=== PATIENT | male | born 1950 | race Caucasian/White ===

== ENCOUNTER → 2016-08-22 | Outpatient (CLI) | payer BC ==
[~2016-08-22] MED LIST: NRV5 PO; VLT500 PO
[2016-08-22 12:26] LABS: BLOOD UREA NITROGEN 7 mg/dl (7-18); BUN/CREATININE RATIO 8.5 (10-20); CALCIUM 9.2 mg/dl (8.5-10.1); CARBON DIOXIDE 29 mmol/L (21-32); CHLORIDE 102 mmol/L (98-107); CREATININE 0.79 mg/dl (0.60-1.40); GLUCOSE 101 mg/dl (70-99); POTASSIUM 4.3 mmol/L (3.5-5.1); SODIUM 136 mmol/L (136-145)
[2016-08-22 12:30] LABS: CHOLESTEROL 262 mg/dl (0-200); CHOLESTEROL/HDL RATIO 3.4; HDL CHOLESTEROL 77 mg/dl; LDL CHOLESTEROL CALCULATED 171 mg/dl; TRIGLYCERIDES 72 mg/dl (0-150); VERY LOW DENSITY LIPOPROT CALC 14 mg/dl
== END | disposition home or self-care (01) ==
LOC: C.LABPVFM 07:31
PROVIDERS: ATTEND Family Medicine
DX: I10 Essential (primary) hypertension (principal); E78.5 Hyperlipidemia, unspecified

== ENCOUNTER → 2017-02-06 | Outpatient (CLI) | payer BC | END | disposition home or self-care (01) | LOC: C.LABPVFM 07:44 | PROVIDERS: ATTEND Family Medicine | DX: E78.5 Hyperlipidemia, unspecified (principal) ==

== ENCOUNTER → 2017-02-07 | Outpatient (CLI) | payer BC ==
[2017-02-07 13:32] LABS: ALT/SGPT 39 U/L (12-78); AST/SGOT 28 U/L (15-37); BLOOD UREA NITROGEN 10 mg/dl (7-18); BUN/CREATININE RATIO 13.5 (10-20); CALCIUM 8.9 mg/dl (8.5-10.1); CARBON DIOXIDE 24 mmol/L (21-32); CHLORIDE 104 mmol/L (98-107); CREATININE 0.74 mg/dl (0.60-1.40); GLUCOSE 94 mg/dl (70-99); POTASSIUM 4.4 mmol/L (3.5-5.1); SODIUM 136 mmol/L (136-145)
[2017-02-07 13:34] LABS: ALB/GLOB RATIO 0.9 (0.9-2); ALKALINE PHOSPHATASE 76 U/L (45-117); CHOLESTEROL 189 mg/dl (0-200); CHOLESTEROL/HDL RATIO 2.2; HDL CHOLESTEROL 85 mg/dl; LDL CHOLESTEROL CALCULATED 89 mg/dl; TRIGLYCERIDES 73 mg/dl (0-150); VERY LOW DENSITY LIPOPROT CALC 15 mg/dl
== END | disposition home or self-care (01) ==
LOC: C.LABPVFM 11:37
PROVIDERS: ATTEND Family Medicine
DX: E78.5 Hyperlipidemia, unspecified (principal)

== ENCOUNTER → 2017-07-20 | Outpatient (CLI) | payer BC ==
--- NOTE | 2017-07-20 15:38 | DIAGNOSTIC IMAGING REPORT ---
R KNEE 1 OR 2 VIEWS ROUTINE CLINICAL HISTORY: Right knee pain COMPARISON: None. DISCUSSION: There are postsurgical changes present. The bones are osteopenic. There are posterior loose bodies. Minor developmental or chronic moderately disordered the proximal tibia. There are osteoarthritic changes present. There are vascular calcifications present. There are dorsal patellar spurs. IMPRESSION: Postsurgical change. Moderate osteoarthritic change. No acute fractures. Posterior loose bodies. Electronically signed by: Kyler Nj M.D. 07/20/2017 3:37 PM Dictated Date/Time: 07/20/2017 3:36 PM
== END | disposition home or self-care (01) ==
LOC: C.RADPV 15:17
PROVIDERS: ATTEND Family Medicine
DX: M20.60 Acquired deformities of toe(s), unspecified, unspecified foot (principal)

== ENCOUNTER 2024-07-16 10:30 | Observation (INO) ==
--- NOTE | 2024-06-18 11:11 | PAT Medication Instructions ---
Medication Instructions Date of Service June 18, 2024 Home Medications Medication Instructions Recorded atorvastatin 10 mg tablet 10 mg PO QPM #90 tabs 09/18/23 omeprazole 20 mg capsule,delayed 20 mg PO QAM #90 caps 03/25/24 release amlodipine 10 mg tablet 10 mg PO QAM #90 tabs 06/10/24 ibuprofen 200 mg tablet 200 - 400 mg PO QID PRN Pain amoxicillin 500 mg capsule 2,000 mg PO ONCE PRN 1 hr prior to dental visit atorvastatin 10 mg tablet 10 mg PO QPM omeprazole 20 mg capsule,delayed release 20 mg PO QAM amlodipine 10 mg tablet 10 mg PO QAM Continue as directed amoxicillin 500 mg capsule 2,000 mg PO ONCE PRN 1 hr prior to dental visit ASK your surgeon for instructions ibuprofen 200 mg tablet 200 - 400 mg PO QID PRN Pain Take morning of surgery With a small sip of water, OTHERWISE NOTHING TO EAT OR DRINK AFTER MIDNIGHT: omeprazole 20 mg capsule,delayed release 20 mg PO QAM amlodipine 10 mg tablet 10 mg PO QAM Take evening before surgery atorvastatin 10 mg tablet 10 mg PO QPM Other Notes If you have any questions please call us at [phone] or [phone] or [phone] or [phone]
--- NOTE | 2024-06-26 09:43 | Anesthesiology Consultation ---
Date of Service June 26, 2024 Assessment & Plan (1) Encounter for pre-operative examination: Chart Review Chart Review: Acceptable Risk for Surgery and Patient seen in Pre Admission Testing - Patient not an ideal OPJ candidate (currently 23 hour obs) Per PAT appt on 06/26/24, no recent illness/disease exposures, illness related symptoms, or recent illness/disease positive tests. Will leave to surgeon's discretion if preop Covid testing needed Patient seen by PCP 06/12/24= seen for paresthesias/discomfort to let side of face x several days. Recurrent issue that has happened in the past - no real significance but wanted evaluated to ensure it would not be a problem for upcoming TKA. Described as neuropathic pain with numbness and tingling. No drooping or other focal deficits. No ALEXANDER, change in vision or eye pain. Can get on right side of face at times as well. Trigeminal neuralgia of left side of face- mild. Offered prednisone but patient declined (not that bothersome). Will continue to monitor. (As of PAT appt 06/26/24- symptoms improved but still present occ; discussed with Dr. Gregory- patient with negative stress test 05/2023 and no acute issues on 06/26/24 PAT EKG; patient can proceed as scheduled) Teaching & Discussion Pre-Anesthesia Teaching/Discussion Notes: Instructed NPO after midnight before surgery,except medications with 15 cc of water. Medication instructions provided according to the PAT guidelines. History Surgery Operation Date: 07/16/24 08:50 Proposed Procedures p Right Total Knee Arthroplasty - Rafa Abreu MD Height/Weight Height: 5 ft 10 in Weight: 82.8 kg Allergies Allergy/AdvReac Type Severity Reaction Status Date / Time doxycycline AdvReac Intermediate Abdominal Verified 06/17/24 09:04 Pain Medications Home Medications Medication Instructions Recorded Confirmed Last Taken ibuprofen 200 mg tablet 200 - 400 mg PO QID PRN Pain 09/03/18 06/17/24 09/18/18 12:00 amoxicillin 500 mg capsule 2,000 mg PO ONCE PRN 1 hr prior to 05/23/23 06/17/24 Unknown dental visit atorvastatin 10 mg tablet 10 mg PO QPM #90 tabs 09/18/23 06/17/24 03/21/24 omeprazole 20 mg capsule,delayed 20 mg PO QAM #90 caps 03/25/24 06/17/24 Unknown release amlodipine 10 mg tablet 10 mg PO QAM #90 tabs 06/10/24 06/17/24 Unknown Past Medical History Medical History GERD (gastroesophageal reflux disease) well controlled and stable with meds History of anxiety no meds History of trigeminal neuralgia - left side of face, 06/12/24, saw PCP, "getting better" (no steroids needed) - has had intermittently for over a year - as of 06/26/24- still present occ- episodic- no known triggers at this time HTN (hypertension) Hx of Lyme disease 08/2023 treated and resolved (feels like he had symptoms for awhile prior to diagnosis) Hyperlipidemia Numbness Chronic right foot felt r/t nerve/sciatica issue Osteoarthritis Stroke-like symptoms hx of (08/2023), was related to lyme dx per pt, no actual stroke > symptoms have resolved and no recurrence Exercise / Class Metabolic Activity II 4-5 Yardwork/Stairs/Walk up hill (one flight of stairs - no chest pain or SOB ) Past Family History Family History Other No family history of adverse response to anesthesia No known problems Denies family history of Ovarian cancer Prostate cancer Myocardial infarction Breast cancer Colorectal cancer Past Surgical History Surgical History History of arthroscopy left shoulder History of carpal tunnel release of both wrists History of colonoscopy History of herniorrhaphy bilateral inguinal hernia repair History of rectal surgery anal fistula repair 2014 History of tooth extraction History of total knee replacement left 2013; "became very constipated afterward with the opioid medications" S/P right knee arthroscopy Past Anesthesia History No Hx of Anesthesia Complications (with exception to constipation with previous TKA due to pain meds ) and No Family Hx of Anesthesia Complications History of PONV No Hx of PONV and No Hx of Motion Sickness Social History Smoking Status: Former smoker Do You Dip or Chew Tobacco: No Smoking End Date: 1979 Hx Alcohol Use: Yes Alcohol type: beer alcohol intake frequency: 0-2 drinks per day (2 beers/day) Hx Substance Use: Yes substance use type: former substance user and marijuana Last Used Substance Other:: years ago Review of Systems - Hx snoring- no witnessed apnea- no hx of sleep study Patient denies chest pain, shortness of breath, dyspnea on exertion, cough, wheezing, palpitations. No hx of seizures, stroke, [place]. No hx of blood clots or blood transfusions Physical Exam Vital Signs VITALS BP 132/72 P 75 TEMP 98.0 SP02 95% RESP 16 Constitutional no acute distress ENMT Mouth: no TMJ clicking Thyromental Distance: > or= 3.5 Finger Breadths (3.5) Mallampati Class: III Mouth / Teeth: 2 1. Missing 2. Chipped/crowned Neck + limited neck extension (minimal) and + facial hair (advised to shave/trim) Respiratory normal respiratory effort; no respiratory distress Auscultation: lungs clear to auscultation bilaterally; no wheezes Cardiovascular Rate/Rhythm: regular rate and regular rhythm Heart Sounds: no murmur Vessels: no carotid bruit Musculoskeletal Spine: no pain with cervical ROM Extremities: extremities normal to inspection Psychiatric Orientation: alert Lab Results Anesthesia Preop Results Results Anesthesia Widget: 2 WBC 6.92 K/ul (4.8-10.8) 06/26/24 Hgb 15.0 g/dl (14.0-18.0) 06/26/24 Hct 43.2 % (42.0-52.0) 06/26/24 Plt 307 K/uL (130-400) 06/26/24 Na 138 mmol/L (136-145) 06/26/24 K 3.9 mmol/L (3.5-5.1) 06/26/24 Cl 103 mmol/L (98-107) 06/26/24 CO2 29 mmol/L (21-32) 06/26/24 BUN 14 mg/dl (6-23) 06/26/24 Creat 0.72 mg/dl (0.6-1.4) 06/26/24 Glucose Level 109 mg/dl (70-99(Fasting)) H 06/26/24 PT 10.2 Seconds (9.0-12.0) 06/26/24 PTT 27 Seconds (21-31) 06/26/24 INR 0.9 (0.9-1.1) 06/26/24 Blood Type O Negative 06/26/24 Antibody Screen NEGATIVE 06/26/24 Testing Electrocardiogram Date: 06/26/24 Findings: + NSR @ (60bpm) Normal EKG per cardio Chest X-Ray Date: 06/26/24 Findings: + NAD Stress Test Date: 05/29/23 Type: exercise (ECHO) Resting EF: 65-70% Resting LV Function: normal Resting RWMA: + none Negative stress ECHO and EKG for ischemia at MPHR 94% Hypertensive BP response to exercise No arrhythmia Poor exercise tolerance. Mild cLVH. Sclerotic AV without significant AV stenosis. Mild TR Normal RVSP. No significant change from prior study on 03/22/16
--- NOTE | 2024-07-13 09:08 | History & Physical Report ---
Date of Service July 13, 2024 Assessment & Plan (1) Right knee DJD: 74-year-old gentleman with a history of a left knee replacement 8 years ago with advanced right knee tricompartment DJD with a history of some type of open reconstruction many years ago. Is failed conservative treatment. He like to proceed with surgical management of the right knee. Plan: We are going to take him to the operating room do a right total knee replacement. The risks and benefits of this procedure explained in depth and th e patient understands. Will likely put some vancomycin in the cement due to his history of open surgery in the past. He is planned to be discharged to home using [facility] program. Will use aspirin for DVT prophylaxis. Will likely put a PS plus insert into maximize his stability. (2) History of total knee replacement: (3) Hx of Lyme disease: (4) GERD (gastroesophageal reflux disease): (5) HTN (hypertension): (6) Hyperlipidemia: History of Present Illness Chief Complaint: . Persistent right knee pain discomfort stiffness and instability. Primary Care Provider: Gaviota Henderson MD . The patient is a 74-year-old gentleman who presents now for surgical treatment of his right knee. He is got a long history of lateral knee problems had his left knee replaced by Dr. Rachid maciel 8 years ago. He has done pretty well from this. Over the years he has developed increased pain discomfort in his right knee. He does have a history of open knee surgery on this side 25 to 30 years ago with some type of reconstruction with a staple. Over time he developed increased pain discomfort. He was actually scheduled for surgery last year but had to cancel due to Lyme disease. He has not been treated. He now I would like to have his knee fixed. Allergies Allergy/AdvReac Type Severity Reaction Status Date / Time doxycycline AdvReac Intermediate Abdominal Verified 07/09/24 15:34 Pain Home Medications Medication Instructions Recorded Confirmed Type ibuprofen 200 mg tablet 200 - 400 mg PO QID PRN Pain 09/03/18 07/09/24 History amoxicillin 500 mg capsule 2,000 mg PO ONCE PRN 1 hr prior to 05/23/23 07/09/24 History dental visit atorvastatin 10 mg tablet 10 mg PO QPM #90 tabs 09/18/23 07/09/24 Rx omeprazole 20 mg capsule,delayed 20 mg PO QAM #90 caps 03/25/24 07/09/24 Rx release amlodipine 10 mg tablet 10 mg PO QAM #90 tabs 06/10/24 07/09/24 Rx Past Med/Surg History Problem List (Updated 07/13/24 @ 09:07 by Rafa Abreu MD) Right knee DJD Conde esophagus Trigeminal neuralgia of left side of face GERD (gastroesophageal reflux disease) Left shoulder pain Abdominal pain Mild/occ- improved previous Lyme disease Anxiety External hemorrhoid History of colon polyps Carpal tunnel syndrome, right Impacted cerumen (Acute) Ulnar fracture (Acute) HTN (hypertension) (Chronic) Hammertoe (Chronic) Hyperlipidemia (Chronic) Encounter for pre-operative examination Dizziness of unknown cause Arthritis (Chronic) Medical History History of trigeminal neuralgia - left side of face, 06/12/24, saw PCP, "getting better" (no steroids needed) - has had intermittently for over a year - as of 06/26/24- still present occ- episodic- no known triggers at this time History of anxiety no meds Stroke-like symptoms hx of (08/2023), was related to lyme dx per pt, no actual stroke > symptoms have resolved and no recurrence GERD (gastroesophageal reflux disease) well controlled and stable with meds Hyperlipidemia HTN (hypertension) Hx of Lyme disease 08/2023 treated and resolved (feels like he had symptoms for awhile prior to diagnosis) Osteoarthritis Numbness Chronic right foot felt r/t nerve/sciatica issue Surgical History History of carpal tunnel release of both wrists S/P right knee arthroscopy History of rectal surgery anal fistula repair 2014 History of arthroscopy left shoulder History of total knee replacement left 2013; "became very constipated afterward with the opioid medications" History of colonoscopy History of herniorrhaphy bilateral inguinal hernia repair History of tooth extraction Family History Other No family history of adverse response to anesthesia No known problems Denies family history of Ovarian cancer Prostate cancer Myocardial infarction Breast cancer Colorectal cancer Social History Smoking Status: Former smoker Tobacco Type: Cigarettes Age Started Using Tobacco: 21; Age Quit Using Tobacco: 26; packs per day: 0.5; Second Hand Exposure: No; Do You Dip or Chew Tobacco: No; Hx Alcohol Use: Yes Alcohol type: beer Alcohol Intake Frequency: 4 or More x per/Week Hx Substance Use: Yes Last Used Substance Other:: years ago Preferred Language: Citizen Of [place] Communication Ability: Effective Visual Impairment: Limited Hearing Ability: Normal Metal Neutralizer Required: No Beliefs That Will Affect Care: None marital status: Current Living Situation: Spouse current occupational status: employed and retired 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 Physical Exam . Physical examination was a healthy pleasant middle-age male. Looks be in pretty good health. Examination of the right knee reveal patient walks independently. Get fairly neutral alignment to his knee. Got bony hypertrophy throughout. He has a fairly stiff knee with about a 10 degree flexion contracture and only bends to about 105 to 110 degrees. He does seem to have a little bit of laxity to varus valgus stressing. No pain with hip motion. He is neurologically intact. Constitutional WD/WN, vitals as above Respiratory normal respiratory effort, lungs clear to auscultation Cardiovascular RRR, no murmur, no edema Gastrointestinal (Abdomen) normal bowel sounds, soft, nontender, no hepatosplenomegaly Results & Data Results & Data Laboratory Results . Diagnostic Findings . X-rays of the right knee reviewed. She has advanced right knee tricompartment DJD. Is got complete loss of the joint space in all 3 compartments. He is got a staple in the distal femur. Then discussed some posterior calcifications. Diffuse osteopenia. The left knee replacement looks to be in acceptable position without obvious problems. PG Care Time/CCT Total # of Minutes Spent Total Time Spent with Patient: Total time spent is greater than 50% in coordination of care (as documented) at patient's floor/unit and/or counseling patient: Coding Level of Care Code None Diagnoses Right knee DJD M17.11 History of total knee replacement Z96.659 Hx of Lyme disease Z86.19 GERD (gastroesophageal reflux disease) K21.9 Primary hypertension I10 Hypertension type: primary hypertension Mixed hyperlipidemia E78.2 Hyperlipidemia type: mixed hyperlipidemia (5) HTN (hypertension) Hypertension type: primary hypertension Qualified Code(s): I10 - Essential (primary) hypertension (6) Hyperlipidemia Hyperlipidemia type: mixed hyperlipidemia Qualified Code(s): E78.2 - Mixed hyperlipidemia
[~2024-07-16 10:30] MED LIST changes: +BUPIVACAINE 0.25% PF 30 ML VIAL ONE; +BUPIVACAINE 0.5 % 5 MG/1 ML PF 10ML VIAL ONE; -NRV5 PO; -VLT500 PO
[2024-07-16] MEDS: ACETAMINOPHEN 500 MG TAB PO SCH ×2 (11:08→21:41)
[2024-07-16] MEDS: FAMOTIDINE 20 MG TAB PO SCH (11:08)
[2024-07-16] MEDS: CeleBREX 200 MG CAP PO SCH (11:08)
[2024-07-16] MEDS: LR 500ML BOLUS, THEN 15ML/HR IV SCH (11:09)
[2024-07-16] MEDS: METOCLOPRAMIDE HCL 10 MG TABLET PO SCH (11:09)
[2024-07-16] MEDS: LR 60ML/HR IV SCH (11:09)
[2024-07-16] MEDS: dexAMETHasone**PF** 10 MG/ML VIAL IV SCH (11:21)
--- NOTE | 2024-07-16 11:21 | History & Physical Bridge Note ---
Date of Service July 16, 2024 History & Physical Bridge Note I have examined the patient, reviewed the History & Physical and in the interval since the performance of the History & Physical I have noted the following changes of clinical significance: no changes noted
[2024-07-16] MEDS ORDERED: MIDAZOLAM HCL 1 MG/ML 2ML VIAL ONE ×2 (12:19→13:49)
[2024-07-16] MEDS ORDERED: PROPOFOL IV EMULSION 10 MG/ML 100 ML VIAL IV ONE (12:22)
[2024-07-16] MEDS ORDERED: ePHEDrine sulfate 50 MG/ML AMP IV PRN (12:34)
[2024-07-16] MEDS ORDERED: fentaNYL citrate PF 100 MCG/2 ML VIAL IV PRN (12:34)
[2024-07-16] MEDS ORDERED: ATROPINE SULFATE 0.1 MG/ML 10ML SYR IV PRN (12:34)
[2024-07-16] MEDS ORDERED: ONDANSETRON INJ 2 MG/ML 2 ML VIAL IV PRN ×2 (12:34→17:38)
[2024-07-16] MEDS ORDERED: ePHEDrine sulfate 50 MG/5 ML SYR ONE (13:43)
[2024-07-16] MEDS ORDERED: PHENYLEPHRINE 100MCG/ML 5ML SYR ONE (13:43)
[2024-07-16] MEDS: ceFAZolin 2000MG 2,000 MG/15 ML SYR IV SCH ×2 (13:44→21:35)
[2024-07-16] MEDS ORDERED: PHENYLEPHRINE HCL 10 MG/ML VIAL ONE (14:03)
[2024-07-16] MEDS: ORTHO JOINT ANESTHETIC ONE (14:09)
[2024-07-16] MEDS: VANCOMYCIN HCL 1000MG/20ML VIAL ONE (14:09)
[2024-07-16] MEDS: ROPIV 0.5% 246mg, Ketorolac 30mg, EPINEPHrine 0.5mg in NSS INFIL SCH (14:09)
[2024-07-16] MEDS: TRANEXAMIC ACID 1,000 MG **IV Intra-op IV SCH (14:38)
--- NOTE | 2024-07-16 15:32 | Operative Report ---
PG Post Operative Report Pre & Post Diagnosis Operation Date: 07/16/24 12:30 Pre-Op Diagnosis: Right Knee Degenerative Joint Disease Post-Op Diagnosis: Right Knee Degenerative Joint Disease I identified the patient and participated in the time-out.: Yes Procedure Operation Date: 07/16/24 12:30 Actual Procedures p Right Total Knee Arthroplasty(Right) - Rafa Abreu MD Hardware removal right knee/distal femur Surgeon Rafa Abreu MD Physician/Internist Sundar Cabrera PA-C Estimated Blood Loss 50 Findings Consistent with Post-Op Diagnosis Operative findings were advanced right knee tricompartment DJD. He had extensive grade 4 [id number] disease in all 3 compartments. He had chronic ACL deficiency. Retained hardware in the lateral femoral condyle. Specimens Right knee sent for pathology. Anesthesia Type Spinal MAC Complications none Disposition Accompanied Patient To Recovery: No Indications The patient is a 74-year-old gentleman has had a long history of right knee problems. He underwent some type of unspecified surgery many years ago well. He has been through extensive conservative treatment of years which became less successful. He was actually scheduled for surgery a year ago but canceled due to Lyme disease. He has been treated for this. Continued be disabled by his knee pain. He elected proceed with right total knee replacement. Description of Procedure Operative implants consist of: 1. Biomet Vanguard size 72.5 right posterior stabilized femoral component. 2. Biomet size 83 tibial tray. 3. 12 mm PS plus polyethylene insert. 4. 34 x 8 and half all poly patella. The patient was taken the op room, identified, placed on the operating table in the supine position. All conductors were appropriately padded. IV antibiotics were provided by the anesthesia team. A spinal anesthetic and adductor canal block had been provided in the holding area. The right side turn was then placed. The right lower extremity was then prepped and draped in usual sterile fashion. The right leg was elevated exsanguinated with use of an Esmarch and the tourniquet was placed at 300 mmHg. An anterior approach of the right knee was then performed to a longitudinal incision centered over the patella. Sharp dissection was got through subcutaneous tissue down the extensor mechanism. A medial parapatellar arthrotomy incision was made. Some subperiosteal dissection was carried out medially. The fat pad was resected from his patella tendon. Lateral patellofemoral ligament was released. Patella subluxate laterally knee was flexed. The osteophytes taken off the distal femur. The ACL was absent. The PCL was released from distal femur. Upon releasing these tissues grain into the staple in the distal femur and remove this with use of a rongeur. The tibia was then subluxated anteriorly. The external tibial alignment jig was then placed on the anterior face of the tibia and adjusted 12 mm medially. The proximal tibial cut was made in the 2 to 3 mm of bone from the medial side. This did not even quite cut down the posterior lateral side articular surface which was significantly depressed. The tibia was then sized to a size 83. Attention drawn the femur. The distal femur was entered with a sharp drill. Intramedullary canal was suction. A right 5 degree valgus cutting guide was placed. A distal femoral cutting block was pinned in place. Distal femoral cut was made take an additional 3 mm of bone off distal femur. The femur was then sized to a size 72.5. The AP cutting block was pinned parallel to the epicondylar axis which was 3 degrees of external rotation. The anterior cut, anterior chamfer, posterior cut, posterior chamfer cuts were made. The box cutting guide was placed and just slight lateral box cut was made. The knee was flexed. The remnants of the medial and lateral menisci were excised. I did have to release the popliteus and the lateral collateral ligament on the lateral side of the knee in order to equalize the flexion gap. A trial femoral component was placed. The tibial tray was then pinned in Luisa external rotation and the drill and stem punch were used to create the defect in proximal tibia for the tibial tray. The knee was then trialed and the 12 mm insert fit most appropriately. We elect to use a PS plus insert due to his significant instability preoperatively. Attention then drawn the patella. The patella was cleaned of all soft tissues. Patella thickness measured 25 mm in thickness was cut down to 15. Was sized to a size 34 patella. The lateral osteophytes removed. The patella button was placed. Knee was taken through range of motion of the patella tracked nicely with no thumbs test. Attention was then drawn toward placing the permanent components. All trial components were removed. Bone plug was placed into this femur limit blood loss. Double batch [place]os G cement was mixed. We did add an additional gram of vancomycin to the cement to his history of previous surgery. A Biomet Vanguard size 72.5 right posterior Byce femoral component, a size 83 tibial tray, 812 mm PS plus insert, and a 34 x 8 all poly patella then cemented placed. The knee was brought out into full extension till cement hardened. Final cement check was then performed. The pericapsular tissues were injected with total of 100 cc of Ortho mix. The patient did receive 1 g tranexamic acid. The tourniquet was then let down for turn time 61 minutes. Hemostasis assured use electrocautery. Extensor Metros then closed with a combination 1 PDS suture and #1 Vicryl suture in a [id number] fashion. Extensor mechanisms are checked found to be intact through subcutaneous tissues then closed with 2 Dexon suture in a buried interrupted fashion skin was closed skin chioma. Leg was then cleaned and dried and sterile dressing with Xeroform, 4 fours, sterile cast padding and Jaylen bandage were applied. Patient then transferred to the recovery room in stable condition. The patient tolerated the procedure well and there were no complications. Sundar Cabrera, my physician therapist's assistant, was present for the entire procedure. His assistance was essential and required for appropriate patient positioning, prepping and draping, surgical exposure, performing the technical details of the operation, placement the implants, closure of the wound, and placement of the sterile bandage. I attest to the content of the Intraoperative Record and any orders documented therein. Any exceptions are noted below.
--- NOTE | 2024-07-16 15:58 | XRay Report ---
Clinical History: Knee replacement 2 views of the right knee are submitted for review. Comparison is made to the prior examination dated 05/27/2034 Findings: There is a new right knee total arthroplasty in expected position. There is no definite sign of infection or loosening. No other osseous abnormality is identified. There are surgical skin chioma anteriorly. Vascular calcifications are present Impression: New right knee replacement Electronically signed by Ceasar Morales 07-16-2024 3:58 PM
--- NOTE | 2024-07-16 17:22 | Anesthesiology Progress Note ---
Date of Service July 16, 2024 Anesthesia Post Procedure Vital Signs Vital Signs: Temp Pulse Pulse Resp BP Pulse Ox O2 Del Method 07/16/24 17:15 36.3 C L 73 15 97/65 L 94 Room Air 07/16/24 17:05 77 18 98/65 L 94 Room Air 07/16/24 16:55 82 14 95/65 L 95 Room Air 07/16/24 16:45 86 17 96/65 L 94 Room Air 07/16/24 16:35 71 12 100/64 95 Room Air 07/16/24 16:25 91 H 24 103/62 92 Room Air 07/16/24 16:15 79 15 94/59 L 94 Room Air 07/16/24 16:05 75 24 103/64 94 Room Air 07/16/24 15:55 74 22 100/61 95 Room Air 07/16/24 15:45 36.3 C L 74 14 93/56 L 95 Room Air 07/16/24 15:35 80 14 91/56 L 98 Oxymask 07/16/24 15:25 36 C L 86 19 90/57 L 95 Oxymask 07/16/24 10:45 36.9 C 72 18 122/80 96 Room Air O2 Flow Rate 07/16/24 17:15 07/16/24 17:05 07/16/24 16:55 07/16/24 16:45 07/16/24 16:35 07/16/24 16:25 07/16/24 16:15 07/16/24 16:05 07/16/24 15:55 07/16/24 15:45 07/16/24 15:35 5 07/16/24 15:25 5 07/16/24 10:45 Transfer of Care Handoff Completed per policy Notes Mental Status: alert / awake / arousable Patient Amnestic to Procedure: Yes Nausea / Vomiting: adequately controlled Pain: adequately controlled Airway Patency, RR, SpO2: stable & adequate BP & HR: stable & adequate Hydration State: stable & adequate Neuraxial Anesthesia: was administered and sensory block is resolving Anesthetic Complications: no major complications apparent and Pt Satisfied with anesthetic care
[2024-07-16] MEDS ORDERED: ALUMINUM/MAGNESIUM SUSP 30 ML UDC PO PRN (17:38)
[2024-07-16] MEDS ORDERED: bisacodyL 10 MG SUPP PR PRN (17:38)
[2024-07-16] MEDS ORDERED: oxyCODONE HCL IR 5 MG TAB (IMMEDIATE RELEASE) PO PRN (17:38)
[2024-07-16] MEDS ORDERED: MAGNESIUM HYDROXIDE SUSP 30 ML UDC PO PRN (17:38)
[2024-07-16] MEDS ORDERED: METOCLOPRAMIDE HCL INJ 5 MG/ML 2 ML VIAL IV PRN (17:38)
[2024-07-16] MEDS ORDERED: HYDROmorphone INJ 0.5 MG/0.5 ML SYR IV PRN (17:38)
[2024-07-16] MEDS ORDERED: NALOXONE HCL 0.4 MG/1 ML VIAL/CARP IV PRN (17:38)
[2024-07-16] MEDS: KETOROLAC TROMETHAMINE 15 MG/ML VIAL IV SCH (18:03)
[2024-07-16] MEDS ORDERED: SENNA 8.6 MG TAB PO SCH (21:00)
[2024-07-16] MEDS: TRANEXAMIC ACID / 0.7% NACL 1,000 MG/100 ML BAG IV SCH (21:32)
[2024-07-16] MEDS: ASPIRIN 81 MG ECTAB PO SCH (21:37)
[2024-07-16] MEDS: ASCORBIC ACID 500 MG TAB PO SCH (21:38)
[2024-07-16] MEDS: DOCUSATE SODIUM 100 MG CAP PO SCH (21:41)
[2024-07-16] MEDS: SENNA 8.6 MG TAB PO SCH (21:41)
[2024-07-17 07:09] LABS: Hemoglobin 12.3 g/dl (14.0-18.0); Mean Corpuscular Hemoglobin 33.2 pg (25.0-34.0); Mean Corpuscular Hgb Conc 35.1 g/dL (32.0-36.0); Mean Corpuscular Volume 94.3 fL (80.0-100.0); Mean Platelet Volume 10.7 fL (9.4-12.4); Platelet Count 263 K/uL (130-400); RDW Coefficient of Variation 12.4 % (11.5-14.5); RDW Standard Deviation 43.5 fL (36.4-46.3); Red Blood Count 3.71 M/uL (4.70-6.10); White Blood Count 15.86 K/ul (4.8-10.8)
[2024-07-17 07:29] LABS: BUN Creatinine Ratio 19.2 (10-20); Creatinine Clr Calc Pharmacy 94.4 ml/min
[2024-07-17] MEDS: dexAMETHasone 10 MG in SYRINGE 0 ML IV SCH (07:51)
[2024-07-17] MEDS: MULTIVITAMIN TAB PO SCH (07:52)
[2024-07-17] MEDS: amLODIPine BESYLATE 5 MG TAB PO SCH (07:52)
[2024-07-17] MEDS: PANTOprazole 40 MG TAB PO SCH (07:52)
[2024-07-17] MEDS: TAMSULOSIN HCL 0.4 MG CAP PO SCH (07:52)
[2024-07-17 08:00] VITALS: BP 126/72; PULSE 61; RESP 16; TEMP 97.2; O2SAT 95
--- NOTE | 2024-07-17 09:49 | Orthopedic Progress Note ---
Date of Service July 17, 2024 Assessment & Plan (1) Status post right knee replacement: Assessment: Right total knee arthroplasty. Plan: Overall, he is doing quite well today with good pain control right knee. He will work with physical therapy later this morning to work on ambulation and range of motion exercises. He can be discharged home later this morning pending formal physical therapy evaluation recommendation. He is on aspirin for DVT prophylaxis. Dressings can be changed tomorrow with the help with home health or he can do it himself which have refills comfortable with. Dressing will be just thigh-high KARTHIK hoses with ABD over surgical site. He should follow-up with Dr. Abreu in 2 to 3 weeks for continued postoperative management or sooner if needed. Subjective . Jason was seen and evaluated this morning resting comfortably no apparent distress. He notes that his pain is well-controlled to his right knee. He has been up and out of bed with no significant issues. He has yet to work with physical therapy today. He denies any concerns with surgical incision site. Denies any active bleeding, discharge, or signs of infection. He denies any other concerns today. Review of Systems All systems reviewed & are unremarkable except as noted in HPI & below. Physical Exam . On physical examination of the right knee, the dressings are clean, dry, in place. His leg is out full extension. He has limited range of motion secondary to postoperative stiffness soreness. Calf soft nontender to palpation. Negative Homans' sign. Intact plantarflexion dorsiflexion of the right ankle. +2 DP and PT pulse. Less than 2-second capillary refill. Normal sensation. Neurovascular intact. Results & Data Results & Data Laboratory Results . Diagnostic Findings . Knee X-Ray 07/16/24 15:23 Clinical History: Knee replacement 2 views of the right knee are submitted for review. Comparison is made to the prior examination dated 05/27/2034 Findings: There is a new right knee total arthroplasty in expected position. There is no definite sign of infection or loosening. No other osseous abnormality is identified. There are surgical skin chioma anteriorly. Vascular calcifications are present Impression: New right knee replacement Electronically signed by Ceasar Morales 07-16-2024 3:58 PM PG Care Time/CCT Total # of Minutes Spent Total Time Spent with Patient: Total time spent is greater than 50% in coordination of care (as documented) at patient's floor/unit and/or counseling patient: Coding Level of Care Code 87804 Post Operative Follow-Up Diagnoses Status post right knee replacement Z96.651
--- NOTE | 2024-07-17 09:55 | Discharge Summary ---
Date of Service July 17, 2024 Admission HPI (Per Admitting) . The patient is a 74-year-old gentleman who presents now for surgical treatment of his right knee. He is got a long history of lateral knee problems had his left knee replaced by Dr. Rachid maciel 8 years ago. He has done pretty well from this. Over the years he has developed increased pain discomfort in his right knee. He does have a history of open knee surgery on this side 25 to 30 years ago with some type of reconstruction with a staple. Over time he developed increased pain discomfort. He was actually scheduled for surgery last year but had to cancel due to Lyme disease. He has not been treated. He now I would like to have his knee fixed. Admission Exam (Per Admitting) . Physical examination was a healthy pleasant middle-age male. Looks be in pretty good health. Examination of the right knee reveal patient walks independently. Get fairly neutral alignment to his knee. Got bony hypertrophy throughout. He has a fairly stiff knee with about a 10 degree flexion contracture and only bends to about 105 to 110 degrees. He does seem to have a little bit of laxity to varus valgus stressing. No pain with hip motion. He is neurologically intact. Principal Diagnosis Same as "Discharge Diagnosis" noted below under Discharge Instructions. Discharge Exam . On physical examination of the right knee, the dressings are clean, dry, in place. His leg is out full extension. He has limited range of motion secondary to postoperative stiffness soreness. Calf soft nontender to palpation. Negative Homans' sign. Intact plantarflexion dorsiflexion of the right ankle. +2 DP and PT pulse. Less than 2-second capillary refill. Normal sensation. Neurovascular intact. Discharge Data Procedures Performed Operation Date: 07/16/24 12:30 Actual Procedures p Right Total Knee Arthroplasty(Right) - Rafa Abreu MD Ordered Studies 07/16/24 05:00 US - OR guided needle placemen Routine Hospital Course (1) Status post right knee replacement: On July 16, 2024 Jason arrived at [facility] and underwent a right total knee arthroplasty performed by Dr. Abreu with no complications. He had a spinal anesthetic. Postoperatively, he was started on aspirin for DVT prophylaxis and transferred to the general orthopedic floor in stable condition. His hospital course was uneventful. On postoperative day #1, his vital signs were stable and his pain was well-controlled. He participated well physical therapy working on ambulation and range of motion exercises. He was then discharged home in stable condition. He will follow-up with Dr. Abreu in 2 to 3 weeks for continued postoperative management or sooner if needed. PG Care Time/CCT Total # of Minutes Spent Total Time Spent with Patient: Total time spent is greater than 50% in coordination of care (as documented) at patient's floor/unit and/or counseling patient: Discharge Plan Discharge Items Patient Disposition: Home - Home Health Services Reason For Visit: Right Knee Osteoarthritis Discharge Diagnosis: Right Knee Replacement Activity: Per Instructions section Weightbearing: Full weightbearing Non-emergency contact: Surgeon Call non-emergency contact if: you have any medication questions Follow-up/Referrals: Gaviota Henderson MD [Primary Care Provider] - [facility]Home Health [Non-Staff] - Diet: Regular Addtl Attending Provider Instructions: ACTIVITY RECOMMENDATIONS: Diet: * You may resume previous diet. Physical Therapy: * You will go to physical therapy three times each week for four to six weeks after your surgery in order to regain your knee range of motion and to retrain your knee to work properly. * It is just as important to make sure you are getting your knee perfectly straight as it is to regain your knee bend. * Taking a pain pill an hour before therapy can help you have a more productive and comfortable therapy session. Home Exercise: * You were shown a series of exercises (heel props, heel slides, etc.) in the hospital. Do these exercises three to four times each day including the exercises you were shown in physical therapy. Walking: * Get up and walk several times each day. For the first four weeks, try not to stand or walk for more than one hour at a time. If you do stand or walk for more than one hour, you will not hurt anything, but your knee and leg will likely swell. * As you feel comfortable, you may change from the walker or crutches to a cane and then to independent walking. MEDICATIONS: New Medicine: * You will likely be taking one or more of these medications: 1. Oxycodone - A quick and shorter-acting pain medication. Take one to two tablets every six hours to lessen your pain. 2. Aspirin - Thins your blood to lessen the chance of forming a blood clot. * The most common side effects of pain medicine and iron are nausea and constipation. If nausea or constipation is too much of a problem or if you have any questions about your new medicines or doses, call [facility] at . We will try to help you manage these issues. "VERY IMPORTANT TO READ AND REVIEW" Pain: * The immediate post-operative period after knee replacement surgery is often quite painful. * You are given a prescription for pain medicine. You should take it, as directed, when you need it, especially before physical therapy and before going to bed. Pain that interferes with sleep is very common and can last several months. * You will likely need pain medicine for the first four to six weeks. It will not stop all of the pain. The pain will lessen and as you feel better, you may change to milder pain medicine such as Tylenol. * The most common side effects of pain medicine are nausea and constipation, so don't take more than you need. SPECIAL CARE INSTRUCTIONS: TEDs/Elastic Stockings: * The white elastic stockings help limit swelling and prevent blood clots from forming in your legs. The more you wear them, the more they work. * Wear them for six weeks after knee replacement surgery and four weeks after partial knee replacement. Incision Site Care: * Remove dressing postoperative day 2 and then shower. Keep direct shower pressure off the incision site. * After showering, cover chioma with dry gauze and change daily or more frequently if the dressing is getting saturated with drainage. * Use the KARTHIK stockings to hold dressing in place. DO NOT apply tape on the skin. * May completely stop using bandage if wound is dry and no drainage * [place] are removed between 2 and 3 weeks post-op. If your follow-up appointment is made before 2 weeks, please have your appointment re- scheduled. It is too early to remove the chioma. Prevention of Infection: * Take antibiotics one hour before any dental cleaning, dental work, urological procedure, gastrointestinal procedure or any invasive surgery in order to prevent your new joint from getting infected. * You may get the antibiotics from the doctor performing the procedure or you may call our office at [phone] before and we will call in a prescrip tion to the pharmacy of your choice. Things to Watch For: * Drainage from the incision site that occurs more than one week after your surgery. * Severely increased knee/leg pain or swelling. * Increased redness at the incision site. * Fever above 102 degrees Fahrenheit. * Unusual chest pain or shortness of breath. * Unusual pain or burning with urination. Call [facility] at [phone] with any of the above problems or if you have any questions about your medicines or recovery. FOLLOW UP VISIT: Make an appointment to see your doctor for approximately two weeks after surgery for a progress check and staple removal by calling the office at [phone]. Pending Studies at Discharge: No Stand-Alone Forms: My [facility], Smoking Cessation Medications and DC Order Prescriptions: Continued atorvastatin 10 mg tablet 10 mg PO QPM Qty: 90 3RF omeprazole 20 mg capsule,delayed release(DR/EC) 20 mg PO QAM Qty: 90 1RF amlodipine 10 mg tablet 10 mg PO QAM Qty: 90 3RF Rx Instructions: TAKE 1 TABLET BY MOUTH ONCE DAILY. oxycodone 5 mg tablet 5 - 10 mg PO Q6 PRN (Reason: pain) Qty: 40 0RF Rx Instructions: Take as needed for pain ondansetron 4 mg tablet,disintegrating 4 mg PO Q8 PRN (Reason: nausea) Qty: 20 1RF Rx Instructions: Take as needed for nausea ketorolac 10 mg tablet 10 mg PO Q6 5 Days Qty: 20 0RF Rx Instructions: Take 4 times per day with food for 5 days to lessen pain and swelling. sennosides [Senokot] 8.6 mg tablet 8.6 mg PO BID 14 Days Qty: 28 0RF Rx Instructions: Take two times a day to prevent/treat constipation acetaminophen [Tylenol Extra Strength] 500 mg tablet 1,000 mg PO TID 30 Days Qty: 180 0RF Rx Instructions: Take 3 times per day to lessen pain. aspirin [Julia Low Dose Aspirin] 81 mg tablet,delayed release (DR/EC) 81 mg PO BID 45 Days Qty: 90 0RF Rx Instructions: Take to prevent blood clots. tamsulosin [Flomax] 0.4 mg capsule 0.4 mg PO DAILY Qty: 7 0RF Rx Instructions: Begin night BEFORE surgery to prevent urinary retention cefadroxil 500 mg capsule 500 mg PO BID 7 Days Qty: 14 0RF Rx Instructions: Take 1 cap twice a day to prevent infection amoxicillin 500 mg capsule 2,000 mg PO ONCE PRN (Reason: 1 hr prior to dental visit) Discontinued ibuprofen 200 mg Tablet 200 - 400 mg PO QID PRN (Reason: Pain) Patient Comments: rarely exceed 2 tablets per day Admission Data Admit Date/Time: 07/16/24 15:23 Attending Provider: Rafa Abreu Admit Provider: Rafa Abreu Primary Care Provider: Gaviota Henderson Other Providers: [facility],Home Health Other Interventions: Discharge Summary Assessment (RN) Last Done: 07/17/24 09:33
[2024-07-17] MEDS ORDERED: ATORVASTATIN 10 MG TAB PO SCH (21:00)
== END 2024-07-17 11:14 | disposition home health service (06) ==
LOC: ASU 10:30 → 3N 10:30